=== PATIENT | male | born 1980 | race Caucasian/White ===

== ENCOUNTER 2016-12-13 11:56 | Emergency (ER) | payer BC, OTHER ==
[~2016-12-13] VITALS: Ht 180.3 cm; Wt 86.5 kg
[~2016-12-13 11:56] MED LIST: CEPH500C PO
[2016-12-13 12:03] VITALS: BP 125/70; TEMP 36.5; Ht 180.3 cm; Wt 86.5 kg
--- NOTE | 2016-12-13 12:27 | EMERGENCY ROOM VISIT NOTE ---
ED Visit Note First contact with patient: 12:05 CHIEF COMPLAINT: Foot pain HISTORY OF PRESENT ILLNESS: This 36-year-old male patient presents to the emergency department ambulatory complaining of swelling and pain in the right foot at rest and worse with weight bearing. The patient stepped through the floor of a porch that he was repairing and injured the right foot. He denies any other pain or injury. The patient rates the pain as sharp and 8/10. The patient has no relief of the pain. The patient is barely able to walk. No numbness or weakness. No ankle pain. There are no lacerations of the foot. The patient is able to move all of their toes and their ankle without pain. Patient has had previous injury to this foot, fourth metatarsal fracture. REVIEW OF SYSTEMS: GENERAL: A 6 system review of systems was completed with positives and pertinent negatives in the HPI. ALLERGIES: No known allergies MEDICATIONS: None PMH: None SOCIAL HISTORY: The patient lives locally PHYSICAL EXAM: Vital Signs: Reviewed Nurse's notes, vital signs stable. GENERAL : This is a 36-year-old male, in no acute distress, but appears in pain, well- developed, well-nourished. MUSCULOSKELETAL: There is no visual deformity of the right foot. There is no erythema no ecchymosis. There is no warmth. There is tenderness and swelling over the dorsal aspect at the proximal aspect of the fourth and fifth metatarsals of the right foot. The range of motion of the foot is mildly limited secondary to pain. There is no tenderness over the plantar fascia. Dorsi flexion 5/5 and Plantar flexion 5/5. The skin is intact and there are no lacerations or puncture wounds. Dorsalis pedis pulse 2+. Capillary refill less than 2 seconds. EMERGENCY DEPARTMENT COURSE: I examined the patient. An X-ray of the right foot was reviewed by myself and radiology and reveals nondisplaced anterior calcaneal fracture. The patient did suffer an axial loading injury. He does not complaining of any back or neck pain. I did palpate the entire spine and there is no tenderness. I discussed the case with Kofi Maya PA-C. He reviewed the films and recommends a hightop fracture boot, nonweightbearing, crutches and follow-up with Dr. Rutherford in the office. He was placed in a fracture boot and instructed on the use of crutches. He declined pain medication. The patient was discharged home in good condition. RIGHT FOOT MIN 3 VIEWS ROUTINE CLINICAL HISTORY: right foot pain Right trauma. Pain. COMPARISON: None. DISCUSSION: Probable fracture anterior calcaneus. No evidence of dislocation. All remaining osseous structures are unremarkable. There is no evidence for soft tissue swelling. IMPRESSION: Fracture considered nondisplaced anterior calcaneus. Current/Historical Medications No Active Prescriptions or Reported Meds Allergies Coded Allergies: No Known Allergies (Unverified , 12/13/16) Vital Signs Date Time Temp Pulse Resp B/P Pulse Ox O2 Delivery O2 Flow Rate FiO2 12/13/16 14:00 71 16 98 12/13/16 12:03 36.5 75 20 125/70 99 Room Air Departure Information Impression Primary Impression: Calcaneal fracture Dispostion Home / Self-Care Condition GOOD Prescriptions No Active Prescriptions or Reported Meds Referrals No Doctor, Assigned (PCP) Francisco Rutherford MD Forms HOME CARE DOCUMENTATION FORM, IMPORTANT VISIT INFORMATION, Work Instructions Return To Work: 5 days Patient Instructions ED Fx Foot, [facility] Additional Instructions Motrin 600 mg every 6-8 hours or moderate pain Ice and elevate the foot Do not bear weight on the foot Contact orthopedics today to schedule a follow-up appointment for further evaluation and management Return with worsening symptoms Problem Qualifiers Primary Impression: Calcaneal fracture Encounter type: initial encounter Calcaneus location: anterior process Fracture type: closed Fracture alignment: nondisplaced Laterality: right Qualified Codes: S92.024A - Nondisplaced fracture of anterior process of right calcaneus, initial encounter for closed fracture
--- NOTE | 2016-12-13 12:40 | DIAGNOSTIC IMAGING REPORT ---
RIGHT FOOT MIN 3 VIEWS ROUTINE CLINICAL HISTORY: right foot pain Right trauma. Pain. COMPARISON: None. DISCUSSION: Probable fracture anterior calcaneus. No evidence of dislocation. All remaining osseous structures are unremarkable. There is no evidence for soft tissue swelling. IMPRESSION: Fracture considered nondisplaced anterior calcaneus. Electronically signed by: Corky Keller M.D. 12/13/2016 12:38 PM Dictated Date/Time: 12/13/2016 12:34 PM
[2016-12-13 14:00] VITALS: PULSE 71; O2SAT 98
== END 2016-12-13 14:00 | disposition home or self-care (01) ==
LOC: C.EDB 11:57 → C.EDD 14:00
DX: S92.024A Nondisplaced fracture of anterior process of right calcaneus, initial encounter for closed fracture (principal); X58.XXXA Exposure to other specified factors, initial encounter

== ENCOUNTER → 2016-12-18 | Outpatient (CLI) | payer OTHER ==
[~2016-12-18] MED LIST changes: +ASPEC325 PO; +MULT-513 PO; +MULT-580 PO; +OMEG10007 PO; +OXYC-57 PO; +PROM1SUP17 PO
--- NOTE | 2016-12-18 15:52 | DIAGNOSTIC IMAGING REPORT ---
RIGHT FOOT CT CT DOSE: 216.45 mGy.cm HISTORY: Right foot injury with pain TECHNIQUE: Multiaxial CT images of the right were performed and reformatted in the sagittal and coronal plane without the use of contrast. COMPARISON: Right foot 12/13/2016 FINDINGS: The distal tibia and fibula are intact. Small nondisplaced fracture within the medial aspect of the navicular bone. No dislocation. The Lisfranc joint is intact. Impacted fracture within the proximal cuboid bone. This demonstrates up to 3 mm of depression. There is also a comminuted and slightly impacted fracture within the anterior process of the calcaneus. This demonstrates up to 2 mm of depression. Soft tissue swelling within the hindfoot. IMPRESSION: Fractures involving the anterior calcaneus, navicular bone, and cuboid bone as described above. Electronically signed by: Salazar Maya M.D. 12/18/2016 3:50 PM Dictated Date/Time: 12/18/2016 3:42 PM
== END | disposition home or self-care (01) ==
LOC: C.CTS 15:19
PROVIDERS: ATTEND Physician Assistant
DX: S92.024A Nondisplaced fracture of anterior process of right calcaneus, initial encounter for closed fracture (principal); S92.251A Displaced fracture of navicular [scaphoid] of right foot, initial encounter for closed fracture; S92.211A Displaced fracture of cuboid bone of right foot, initial encounter for closed fracture; X58.XXXA Exposure to other specified factors, initial encounter

== ENCOUNTER → 2017-01-03 | Outpatient (CLI) | payer OTHER ==
[~2017-01-03] MED LIST changes: -CEPH500C PO
--- NOTE | 2017-01-03 08:55 | DIAGNOSTIC IMAGING REPORT ---
RIGHT FOOT MIN 3 VIEWS CLINICAL HISTORY: Right foot pain COMPARISON: CT scan dated 12/18/2016, conventional radiographic study dated 12/13/2016 DISCUSSION: There is no change in the appearance of the nondisplaced navicular fracture. There is no change in the appearance of the fracture involving the anterior calcaneus. The cuboid fracture reported on the CT scan is difficult to visualize on conventional radiographic imaging. IMPRESSION: 1. No interval change in the appearance of the calcaneal and navicular fractures. 2. The cuboid fracture described on the recent CT scan is difficult to visualize on conventional radiographic imaging Electronically signed by: Jose A Whitten M.D. 01/03/2017 8:54 AM Dictated Date/Time: 01/03/2017 8:50 AM
== END | disposition home or self-care (01) ==
LOC: C.RDSM 14:57
PROVIDERS: ATTEND Physician Assistant
DX: M79.671 Pain in right foot (principal)

== ENCOUNTER → 2017-01-25 | Outpatient (CLI) | payer OTHER ==
--- NOTE | 2017-01-25 14:21 | DIAGNOSTIC IMAGING REPORT ---
RIGHT FOOT 3 VIEWS CLINICAL HISTORY: Right foot pain. Healing fractures. FINDINGS: 3 views the right foot are compared to study dated 01/03/2017. There is mild disuse osteopenia. The healing navicular fracture seen previously is barely perceptible on today's examination. There is only a thin band of sclerosis identified at the site of the previously characterized calcaneal fracture. No acute fracture is identified. The joint spaces of the foot are well-maintained. The overlying soft tissues are within normal limits. IMPRESSION: 1. A healing navicular fracture is again seen. The fracture line has almost completely resolved. 2. There is only a thin band of sclerosis identified at the site of the calcaneal fracture. Electronically signed by: Bobby Feliz M.D. 01/25/2017 2:19 PM Dictated Date/Time: 01/25/2017 2:17 PM
== END | disposition home or self-care (01) ==
LOC: C.RDSM 12:57
PROVIDERS: ATTEND Physician Assistant
DX: R52 Pain, unspecified (principal)

== ENCOUNTER → 2017-02-26 | Outpatient (CLI) | payer OTHER ==
--- NOTE | 2017-02-26 14:58 | DIAGNOSTIC IMAGING REPORT ---
RIGHT FOOT 3 VIEWS HISTORY: CLOSED RIGHT CALCANEAL FX Right COMPARISON: Right foot 01/25/2017. FINDINGS: Near complete healing of the anterior calcaneus, navicular, and cuboid bone fractures. No acute fractures identified. The Lisfranc joint is intact. Mild soft tissue swelling within the midfoot has improved. No radiopaque foreign bodies. IMPRESSION: Near complete healing of the anterior calcaneus, navicular, and cuboid bone fractures. Electronically signed by: Salazar Maya M.D. 02/26/2017 2:56 PM Dictated Date/Time: 02/26/2017 2:54 PM
== END | disposition home or self-care (01) ==
LOC: C.RDSM 13:13
PROVIDERS: ATTEND Physician Assistant
DX: S92.021D Displaced fracture of anterior process of right calcaneus, subsequent encounter for fracture with routine healing (principal); X58.XXXD Exposure to other specified factors, subsequent encounter

== ENCOUNTER 2017-07-26 17:09 | Observation (INO) | payer OTHER ==
[~2017-07-26] VITALS: Ht 180.3 cm; Wt 89.8 kg
[2017-07-26] VITALS (14 sets, daily range): BP systolic 124–159; BP diastolic 85–108; PULSE 58–87; TEMP 36.4–37; O2SAT 96–100; Ht 180.3 cm; Wt 89.8 kg
[2017-07-26] MEDS ORDERED: FENTANYL CITRATE INJ 50 MCG/1 ML 2 ML VIAL IV ONE ×2 (17:15→18:45)
[2017-07-26 17:42] LABS: BASO % 0.3 %; BASO ABS # 0.02 K/uL (0-0.2); COMPLETE YES; EOS % 2.8 %; HEMATOCRIT 42.9 % (42-52); IG% 0.3 %; LYMPH % 33.6 %; LYMPH ABS # 2.14 K/uL (1.2-3.4); MEAN CELL VOLUME 87.2 fL (80-100); MEAN CORPUSCULAR HEMOGLOBIN 30.1 pg (25-34); MEAN CORPUSCULAR HGB CONC 34.5 g/dl (32-36); MEAN PLATELET VOLUME 11.5 fL (7.4-10.4); MONO % 10.5 %; NEUT % 52.5 %; PLATELET COUNT 211 K/uL (130-400); RED BLOOD COUNT 4.92 M/uL (4.7-6.1); WHITE BLOOD COUNT 6.36 K/uL (4.8-10.8)
[2017-07-26] MEDS ORDERED: OMEG10007 PO (17:44)
[2017-07-26] MEDS ORDERED: MULT-580 PO (17:44)
[2017-07-26] MEDS ORDERED: MULT-513 PO (17:44)
--- NOTE | 2017-07-26 17:45 | DIAGNOSTIC IMAGING REPORT ---
RIGHT ANKLE 3 VIEWS HISTORY: right ankle injury COMPARISON: None. FINDINGS: Trimalleolar ankle fracture with associated lateral dislocation. There is soft tissue gas adjacent to the displaced medial malleolus fracture concerning for an open fracture. The talus is displaced 1.8 cm laterally from the distal tibia. There is also 1.5 cm of posterior displacement of the talus in relation to the tibia. The distal fibular and posterior malleolar fractures are slightly comminuted. No radiopaque foreign bodies. IMPRESSION: Right ankle trimalleolar fracture with a lateral dislocation. Soft tissue gas adjacent to the displaced medial malleolus fracture is concerning for a compound fracture. Electronically signed by: Salazar Maya M.D. 07/26/2017 5:43 PM Dictated Date/Time: 07/26/2017 5:41 PM
[2017-07-26 17:48] LABS: PARTIAL THROMBOPLASTIN RATIO 0.9; PROTHROMBIN TIME (PATIENT) 10.5 SECONDS (9.0-12.0)
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
[2017-07-26] MEDS ORDERED: PROPOFOL IV EMULSION 10 MG/ML 20 ML VIAL IV ONE (17:50)
[2017-07-26] MEDS ORDERED: KETAMINE HCL INJ 50 MG/ML 10 ML VIAL ONE (17:51)
[2017-07-26 17:59] LABS: BUN/CREATININE RATIO 14.4 (10-20); CALCIUM 9.2 mg/dl (8.5-10.1); CREATININE 1.17 mg/dl (0.60-1.40); POTASSIUM 3.9 mmol/L (3.5-5.1)
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
[2017-07-26] MEDS ORDERED: SODIUM CHLORIDE 0.9% 1000ML 1,000 ML IV SCH (18:48)
[2017-07-26] MEDS ORDERED: MAGNESIUM HYDROXIDE SUSP 30 ML UDC PO PRN (19:00)
[2017-07-26] MEDS ORDERED: OXYCODONE/ACETAMINOPHEN 5-325 TAB PO PRN (19:00)
[2017-07-26] MEDS ORDERED: ZOLPIDEM TARTRATE 5 MG TAB PO PRN (19:00)
--- NOTE | 2017-07-26 19:06 | DIAGNOSTIC IMAGING REPORT ---
RIGHT ANKLE 3 VIEWS HISTORY: Right ankle fracture/dislocation. post reduction COMPARISON: Right ankle 07/26/2017. FINDINGS: Overlying splint material obscures fine bony detail. Improved anatomic alignment status post reduction of the trimalleolar fracture/dislocation. There remains a millimeters of posterior displacement of the talus in relation to the distal tibia. The posterior malleolus fracture remains displaced up to 6 mm. The medial malleolus fracture demonstrates 9 mm of medial displacement. The lateral malleolus fracture is also slightly displaced. There still mild medial subluxation of the talus in relation to the distal tibia. Diffuse soft tissue swelling. No radiopaque foreign bodies. IMPRESSION: Status post reduction of the trimalleolar fracture/dislocation with improved anatomic alignment. There is now mild medial subluxation of the talus in relation to the distal tibia . Electronically signed by: Salazar Maya M.D. 07/26/2017 7:05 PM Dictated Date/Time: 07/26/2017 7:02 PM
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
[2017-07-26] MEDS ORDERED: IV FLUIDS COMPLETED PRN (19:30)
[2017-07-26 20:23] LABS: HEMATOCRIT 41.1 % (42-52); MEAN CELL VOLUME 87.3 fL (80-100); MEAN CORPUSCULAR HEMOGLOBIN 29.9 pg (25-34); MEAN CORPUSCULAR HGB CONC 34.3 g/dl (32-36); MEAN PLATELET VOLUME 11.9 fL (7.4-10.4); PLATELET COUNT 200 K/uL (130-400); RED BLOOD COUNT 4.71 M/uL (4.7-6.1); WHITE BLOOD COUNT 16.09 K/uL (4.8-10.8)
[2017-07-26] MEDS: DOCUSATE SODIUM 100 MG CAP PO SCH (22:14)
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
[2017-07-27] VITALS (7 sets, daily range): BP systolic 126–145; BP diastolic 79–83; PULSE 64–93; TEMP 36.7–37; O2SAT 96–100
[2017-07-27] MEDS ORDERED: CEFAZOLIN 2000MG IV PUSH 10 ML IV SCH (06:00)
[2017-07-27] MEDS ORDERED: NURSING VERBAL MED ORDER ONE ×3 (07:30→14:00)
[2017-07-27] MEDS ORDERED: MoRPHine SULFATE 4 MG/ML 1 ML CARP\\VIAL IV PRN (07:45)
[2017-07-27] MEDS ORDERED: SODIUM CHLORIDE 0.9% 1000ML 1,000 ML IV SCH (07:45)
[2017-07-27] MEDS: DOCUSATE SODIUM 100 MG CAP PO SCH (08:35)
[2017-07-27] MEDS ORDERED: RANITIDINE HCL 150 MG TAB PO SCH (09:00)
--- NOTE | 2017-07-27 09:14 | Orthopedic Progress Note ---
Orthopedic Progress Note Date of Service Jul 27, 2017. Subjective Denies: chest pain, SOB, nausea / vomiting, light headedness, calf pain Additional Notes: Right ankle discomfort. Stable in splint. NPO Objective calves soft nontender, N/V intact, splint C/D/I, capillary refill less than 2 sec., A&O x3, toes mobile Date Time Temp Pulse Resp B/P (MAP) Pulse Ox O2 Delivery O2 Flow Rate FiO2 07/27/17 07:25 37.0 64 16 145/83 (103) 96 Room Air 07/27/17 00:15 Room Air 07/26/17 23:05 37.0 80 18 138/85 (102) 98 Room Air 07/26/17 20:38 97 Room Air 07/26/17 20:18 36.6 87 16 148/85 97 Room Air 07/26/17 19:52 79 18 145/92 96 Room Air 07/26/17 19:40 72 18 145/90 98 Room Air 07/26/17 19:10 36.8 85 18 138/95 98 Room Air 07/26/17 18:55 69 20 146/101 100 Nasal Cannula 2.0 07/26/17 18:34 36.4 78 18 154/101 100 Nasal Cannula 07/26/17 18:31 58 16 140/97 100 Nasal Cannula 2.0 07/26/17 18:23 71 16 159/108 100 Nasal Cannula 2.0 07/26/17 18:20 82 17 141/98 99 Nasal Cannula 2.0 07/26/17 18:17 77 16 144/101 100 Nasal Cannula 2.0 07/26/17 18:15 69 18 124/91 100 Nasal Cannula 07/26/17 18:01 55 16 124/88 100 Nasal Cannula 2.0 07/26/17 18:00 70 07/26/17 17:38 76 16 141/92 98 Nasal Cannula 2.0 07/26/17 17:28 36.9 68 16 144/99 99 Room Air 07/26/17 17:13 36.6 67 18 144/98 98 Room Air Laboratory Results 24 Hours: Test 07/26/17 17:26 07/26/17 19:40 White Blood Count 6.36 K/uL Red Blood Count 4.92 M/uL Hemoglobin 14.8 g/dL 14.1 g/dL Hematocrit 42.9 % 41.1 % Mean Corpuscular Volume 87.2 fL Mean Corpuscular Hemoglobin 30.1 pg Mean Corpuscular Hemoglobin Concent 34.5 g/dl Platelet Count 211 K/uL Mean Platelet Volume 11.5 fL Neutrophils (%) (Auto) 52.5 % Lymphocytes (%) (Auto) 33.6 % Monocytes (%) (Auto) 10.5 % Eosinophils (%) (Auto) 2.8 % Basophils (%) (Auto) 0.3 % Neutrophils # (Auto) 3.33 K/uL Lymphocytes # (Auto) 2.14 K/uL Monocytes # (Auto) 0.67 K/uL Eosinophils # (Auto) 0.18 K/uL Basophils # (Auto) 0.02 K/uL Prothromb Time International Ratio 1.0 Prothrombin Time 10.5 SECONDS Assessment & Plan Assessment: Right trimalleolar ankle fracture Plan: To OR this AM NPO Consent on chart Pre-op Ancef DVT prophylaxis
[2017-07-27] MEDS ORDERED: MIDAZOLAM HCL 1 MG/ML 2ML VIAL ONE ×2 (09:16→09:31)
[2017-07-27] MEDS ORDERED: FENTANYL CITRATE INJ 50 MCG/1 ML 2 ML VIAL ONE ×3 (09:16→12:00)
[2017-07-27] MEDS ORDERED: LIDOCAINE HCL 2% 2 ML VIAL (20MG/ML) ONE (09:17)
[2017-07-27] MEDS ORDERED: PROPOFOL IV EMULSION 10 MG/ML 20 ML VIAL IV ONE ×2 (09:17)
[2017-07-27] MEDS ORDERED: ROPIVACAINE 0.5% 5 MG/ML 30 ML VIAL ONE (09:33)
[2017-07-27] MEDS ORDERED: BUPIVACAINE/EPINEPHRINE 0.5% MPF 1:200,000 30 ML VIAL ONE (09:35)
[2017-07-27] MEDS ORDERED: ONDANSETRON INJ 2 MG/ML 2 ML VIAL ONE (10:31)
[2017-07-27] MEDS ORDERED: SODIUM CHLORIDE 0.9% INJ 10 ML VIAL ONE (10:34)
[2017-07-27] MEDS ORDERED: CEFAZOLIN SOD 1 GM VIAL ONE (10:34)
[2017-07-27] MEDS ORDERED: ONDANSETRON INJ 2 MG/ML 2 ML VIAL IV PRN ×2 (11:45→14:00)
[2017-07-27] MEDS ORDERED: NALOXONE HCL 0.4 MG/1 ML VIAL/CARP IV PRN (11:45)
[2017-07-27] MEDS ORDERED: HYDROmorphone INJ 1 MG/ML SYR IV PRN (11:45)
[2017-07-27] MEDS ORDERED: ATROPINE SULFATE 0.1 MG/ML 5ML SYR IV PRN (11:45)
[2017-07-27] MEDS ORDERED: FLUMAZENIL 0.1 MG/1 ML 10 ML VIAL IV PRN (11:45)
[2017-07-27] MEDS ORDERED: PROMETHAZINE HCL INJ 12.5 MG in SODIUM CHLORIDE 0.9% 50ML 50 ML IV PRN (11:45)
[2017-07-27] MEDS ORDERED: EpHEDrine SULFATE INJ 50 MG/ML AMP IV PRN (11:45)
[2017-07-27] MEDS ORDERED: HYDROmorphone INJ 2 MG/ML SYR/VIAL ONE (12:06)
[2017-07-27] MEDS ORDERED: OXYC-57 PO (12:27)
[2017-07-27] MEDS ORDERED: ASPEC325 PO (12:27)
--- NOTE | 2017-07-27 12:30 | Discharge Instructions ---
Discharge Instructions Date of Service Jul 27, 2017. Admission Reason for Admission: Fracture Of Ankle, Trimalleolar, Right, Closed, Discharge Discharge Diagnosis / Problem: Right ankle fracture Discharge Goals Goal(s): Decrease discomfort, Improve function Activity Recommendations Activity Limitations: as noted below Weightbearing Status: Right non-weightbearing . Instructions / Follow-Up Instructions / Follow-Up Nonweightbearing right lower extremity with crutches/walker. Keep splint/ dressing clean and dry. Maintain splint/dressing until follow-up with MD. Frequent ice and elevation. Current Hospital Diet Patient's current hospital diet: Regular Diet Discharge Diet Recommended Diet: Regular Diet Procedures Procedures Performed: Open Reduction Internal Fixation Right Ankle Pending Studies Studies pending at discharge: no Medical Emergencies . Who to Call and When: Medical Emergencies: If at any time you feel your situation is an emergency, please call 911 immediately. . Non-Emergent Contact Non-Emergency issues call your: Surgeon Call Non-Emergent contact if: temperature is above 101.5, your pain is not controlled, wound has increased drainage, wound has increased redness . "Provider Documentation" section prepared by Franc Ocasio PA-C. . VTE Core Measure Inpt VTE Proph given/why not?: Other Anticoagulation (ASA), T.E.D. Stockings, SCD's [place] Drug Monitoring Program Search Results: patient reviewed within database, no issues identified
[2017-07-27] MEDS ORDERED: PROM1SUP17 PO (12:37)
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
--- NOTE | 2017-07-27 12:45 | Anesthesiology Progress Note ---
Anesthesia Post Op Note Date & Time Jul 27, 2017 at 12:44 Vital Signs Pain Intensity: 0 Vital Signs Past 12 Hours Date Time Temp Pulse Resp B/P (MAP) Pulse Ox O2 Delivery O2 Flow Rate FiO2 07/27/17 12:35 98 12 147/82 99 Oxymask 10 07/27/17 12:27 36.2 88 12 140/85 98 Oxymask 10 07/27/17 07:40 Room Air 07/27/17 07:25 37.0 64 16 145/83 (103) 96 Room Air Notes Mental Status: alert / awake / arousable, participated in evaluation Pt Amnestic to Procedure: Yes Nausea / Vomiting: adequately controlled Pain: adequately controlled Airway Patency, RR, SpO2: stable & adequate BP & HR: stable & adequate Hydration State: stable & adequate Anesthetic Complications: no major complications apparent
--- NOTE | 2017-07-27 12:55 | DIAGNOSTIC IMAGING REPORT ---
R ANKLE 2 VIEWS CLINICAL HISTORY: RT ORIF ANKLE COMPARISON STUDY: Right ankle radiographs July 26, 2017. Fluoroscopy time: 1 minute and 47 seconds. FINDINGS: 3 fluoroscopic images of the right ankle demonstrate placement of a distal right fibular and screws. There are medial malleolar screws as well as screws extending through the posterior malleolus fracture. Hardware is intact and there are no unexpected radiopaque foreign bodies. Alignment now appears near anatomic. There is no ankle mortise widening. IMPRESSION: Expected findings following right ankle internal fixation. Electronically signed by: Harsh Morrow M.D. 07/27/2017 12:53 PM Dictated Date/Time: 07/27/2017 12:52 PM
--- NOTE | 2017-07-27 13:35 | DIAGNOSTIC IMAGING REPORT ---
R ANKLE MIN 3 VIEWS ROUTINE CLINICAL HISTORY: Postoperative evaluation. COMPARISON: Right ankle radiographs July 26, 2017. FINDINGS: Overlying cast is noted. A distal right fibular plate and screws is noted. There are medial malleolar screws as well as screws which fixate the posterior malleolus fracture. Hardware is intact. There are no unexpected radiopaque foreign bodies. Alignment is near anatomic. There is no ankle mortise widening. IMPRESSION: Expected findings following right ankle internal fixation. Electronically signed by: Harsh Morrow M.D. 07/27/2017 1:33 PM Dictated Date/Time: 07/27/2017 1:32 PM
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
--- NOTE | 2017-08-05 21:18 | DISCHARGE SUMMARY ---
CHIEF COMPLAINT: Right ankle pain. Please see complete history and physical examination. HOSPITAL COURSE: The patient underwent ORIF of his right ankle fracture without complication. He tolerated the procedure well and was discharged to recovery room in stable condition. His postop course was relatively uneventful. He was able to be discharged home on postop day 0. He was started on aspirin for DVT prophylaxis. He will maintain this for approximately 4 weeks or as directed by Dr. Guillen. He was given a prescription for pain medicine. He was to be nonweightbearing with crutches until followup with the doctor in approximately 10-14 days.
== END 2017-07-27 18:00 | disposition home or self-care (01) ==
LOC: C.EDB 17:10 → C.MSW 18:54
PROVIDERS: ADMIT Orthopaedic Surgery Sports Medicine; ATTEND Orthopaedic Surgery Sports Medicine
DX: S82.851A Displaced trimalleolar fracture of right lower leg, initial encounter for closed fracture (principal); V28.0XXA Motorcycle driver injured in noncollision transport accident in nontraffic accident, initial encounter

== ENCOUNTER → 2017-08-14 | Outpatient (CLI) | payer OTHER ==
[2017-08-14 12:50] LABS: CHOLESTEROL/HDL RATIO 3.7
== END | disposition home or self-care (01) ==
LOC: C.LABBFT 09:27
PROVIDERS: ATTEND Internal Medicine
DX: Z00.00 Encounter for general adult medical examination without abnormal findings (principal)